=== PATIENT | male | born 1970 | race Caucasian/White ===

== ENCOUNTER 2016-11-30 13:41 | Emergency (ER) | payer MEDICAID ==
[~2016-11-30] VITALS: Ht 177.8 cm; Wt 54.4 kg
[2016-11-30] MEDS ORDERED: PERCOCET 5-3251 EACH ORAL (13:50)
[2016-11-30 14:26] LABS: BASOPHILS % (AUTO) 1.5 % (0.0-2.0); EOSINOPHILS % (AUTO) 2.8 % (0.0-3.0); LYMPHOCYTES % (AUTO) 27.5 % (20.0-45.0); MEAN CORPUSCULAR HEMOGLOBIN 31.2 PG (27.0-31.0); MEAN CORPUSCULAR HGB CONC 33.2 G/DL (32.0-36.0); MEAN CORPUSCULAR VOLUME 94 FL (80-99); MEAN PLATELET VOLUME 7.3 FL (6.5-10.1); MONOCYTES % (AUTO) 5.7 % (1.0-10.0); NEUTROPHILS % (AUTO) 62.5 % (45.0-75.0); PLATELET COUNT 254 K/UL (150-450); RED BLOOD COUNT 4.97 M/UL (4.70-6.10); RED CELL DISTRIBUTION WIDTH 11.8 % (11.6-14.8); WHITE BLOOD COUNT 8.3 K/UL (4.8-10.8)
[2016-11-30 14:42] LABS: TROPONIN I < 0.30 ng/mL (<=0.30)
[2016-11-30 14:45] LABS: ALANINE AMINOTRANSFERASE 11 U/L (3-41); ALBUMIN/GLOBULIN RATIO 1.6 (1.0-2.7); ANION GAP 15 (5-15); ASPARTATE AMINO TRANSFERASE 14 U/L (5-40); CALCIUM 9.6 mg/dL (8.6-10.2); CARBON DIOXIDE 28 mEQ/L (20-30); CHLORIDE 99 mEQ/L (98-107); CREATININE 1.1 mg/dL (0.7-1.2); GLOMERULAR FILTRATION RATE > 60 mL/min (>60); HEMOLYSIS 5; SODIUM 142 mEQ/L (135-145); TOTAL PROTEIN 7.3 g/dL (6.6-8.7)
[2016-11-30 14:52] VITALS: BP 109/115
[2016-11-30 14:55] LABS: CKMB 1.5 ng/mL (< 6.7)
[2016-11-30] MEDS ORDERED: Ketorolac 30mg Inj IV ONE (15:45)
[2016-11-30 15:46] LABS: APPEARANCE,URINE CLEAR; KETONES,URINE 2+ (NEGATIVE); LEUKOCYTE ESTERASE ,URINE 1+ (NEGATIVE); NITRITE,URINE NEGATIVE (NEGATIVE); PH,URINE 7 (4.5-8.0); PROTEIN,URINE NEGATIVE (NEGATIVE); UROBILINOGEN,URINE 4 MG/DL (0.0-1.0)
[2016-11-30 16:05] VITALS: BP 115/68
[2016-11-30 16:06] LABS: RBC,URINE 0-2 /HPF (0 - 0)
[2016-11-30 16:07] LABS: AMORPHOUS SEDIMENT,UR FEW /LPF; WBC,URINE 0-2 /HPF (0 - 0)
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
--- NOTE | 2016-12-01 08:29 | Diagnostic Imaging Report ---
Indication: Chest Pain Comparison: None A single view chest radiograph was obtained. Findings: Cardiomediastinal appearance is within normal limits for age. Pulmonary vascularity is appropriate. The diaphragmatic contour is smooth and costophrenic angles are sharp. No pleural effusions are identified. The bones are unremarkable. Impression: No acute findings
--- NOTE | 2016-12-02 19:48 | Cardiology Report ---
APPROVED REPORT EKG Measurement Heart [id number] Normal sinus rhythm Voltage for LVH Borderline ECG
== END 2016-11-30 16:05 | disposition home or self-care (01) ==
LOC: EDBD 13:41 → EMR 14:25
DX: R53.1 Weakness (principal); Z88.0 Allergy status to penicillin; Z87.19 Personal history of other diseases of the digestive system
CPT/HCPCS: 36415; 71010; 80053; 81003; 82550; 82553; 83605; 84484; 85025; 86710; 87040; 93005; 96361; 96374; 99284; J1885

== ENCOUNTER 2018-04-12 02:23 | Emergency (ER) | payer MEDICAID ==
[~2018-04-12] VITALS: Ht 175.3 cm; Wt 63.5 kg
[~2018-04-12 02:23] MED LIST: PERCOCET 5-3251 EACH ORAL
[2018-04-12 02:30] VITALS: BP 124/72
--- NOTE | 2018-04-12 02:44 | Emergency Room Report ---
History of Present Illness General Chief Complaint: Medication Refill Source: Patient, EMS Present Illness HPI Is a 48-year-old male with chief complaint of dental pain. He said he had oral dental implant done 4 weeks ago. He was given Percocet and is out of his pain medication. He complaining of dental pain. Initially said that he gave [facility] his Percocet and only received 10 back. He is here for pain medication. Pain is 10 out of 10. No nausea no vomiting. No fever or chills. Denies any other complaint. Allergies: Coded Allergies: PENICILLINS (Verified Allergy, Unknown, 11/30/16) Patient History Past Medical History: see triage record, old chart reviewed Past Surgical History: other Pertinent Family History: none Social History: Reports: smoking, alcohol use Immunizations: other Reviewed Nursing Documentation: PMH: Agreed; PSxH: Agreed Nursing Documentation-PMH Past Medical History: No Stated History Hx Gastrointestinal Problems: Yes - Crohn's Ds., Appendectomy Review of Systems Eye: Denies: eye pain, blurred vision ENT: Denies: ear pain, nose congestion, throat swelling Respiratory: Denies: cough, shortness of breath Cardiovascular: Denies: chest pain, palpitations Gastrointestinal: Denies: abdominal pain, diarrhea, nausea, vomiting Musculoskeletal: Denies: back pain, joint pain Skin: Denies: rash Neurological: Denies: headache, numbness Endocrine: Denies: increased thirst, increased urine Hematologic/Lymphatic: Denies: easy bruising All Other Systems: negative except mentioned in HPI Physical Exam Vital Signs Date Time Temp Pulse Resp B/P (MAP) Pulse Ox O2 Delivery O2 Flow Rate FiO2 04/12/18 02:20 98.0 92 20 124/72 95 Room Air 98.1 vitals normal Sp02 EP Interpretation: reviewed, normal General Appearance: well appearing, no apparent distress, alert, other - slurring his speech Head: normocephalic, atraumatic Eyes: bilateral eye PERRL, bilateral eye EOMI ENT: hearing grossly normal, normal pharynx, other - he has no dentition. He has implant screws. Neck: full range of motion, supple, no meningismus Respiratory: chest non-tender, lungs clear, normal breath sounds Cardiovascular #1: regular rate, rhythm, no murmur Gastrointestinal: normal bowel sounds, non tender, no mass, no organomegaly, no bruit, non-distended Musculoskeletal: back normal, gait/station normal, normal range of motion Psychiatric: mood/affect normal Skin: warm/dry Medical Decision Making Diagnostic Impression: Primary Impression: Dental implant pain Qualified Codes: T85.848A - Pain due to other internal prosthetic devices, implants and grafts, initial encounter Additional Impression: Drug-seeking behavior ER Course Patient presents with dental implant pain. I see no evidence of infection. On the [employer] system he has multiple prescriptions for oxycodone and lorazepam from different doctors. He just had 1 filled on 04/07/2018. Patient arty appear to be under influence of alcohol/drugs. I am not comfortable refilling any pain medication for this patient. I offered Tylenol or Motrin for his pain. Because he did not get pain medication he was cursing and threatening the ER staff. Patient was discharged without his paperwork's. Last Vital Signs Date Time Temp Pulse Resp B/P (MAP) Pulse Ox O2 Delivery O2 Flow Rate FiO2 04/12/18 02:20 98.0 92 20 124/72 95 Room Air 98.1 Status: unchanged Disposition: HOME, SELF-CARE Condition: Stable ZHAO UMANZOR M.D. April 12, 2018 02:44
[2018-04-12 02:50] VITALS: BP 124/72
== END 2018-04-12 02:50 | disposition home or self-care (01) ==
LOC: EDBD 02:23 → EMR 02:42
DX: T85.848A Pain due to other internal prosthetic devices, implants and grafts, initial encounter (principal); Z76.5 Malingerer [conscious simulation]; Z88.0 Allergy status to penicillin; F17.200 Nicotine dependence, unspecified, uncomplicated; Z90.89 Acquired absence of other organs; K50.90 Crohn's disease, unspecified, without complications; Y83.1 Surgical operation with implant of artificial internal device as the cause of abnormal reaction of the patient, or of later complication, without mention of misadventure at the time of the procedure; Y92.9 Unspecified place or not applicable
CPT/HCPCS: 99282